=== PATIENT | male | born 1980 | race Two or more races ===

== ENCOUNTER 2019-03-21 23:27 | Emergency (ER) | payer BC ==
--- NOTE | 2019-03-21 23:50 | ED ---
Psychiatric Complaint - HPI Summary HPI Summary: A 38 y/o male presents to [facility] with a chief complaint of being brought in by police on a 9.41. The patient reportedly got into an argument with his and cut his wrists. He denies any current SI. He reports drinking red wine [employer] and reports some N/V dizziness and headache. He denies any SOB or CP. - History Of Current Complaint Chief Complaint: [facility]entalHealth Time Seen by Provider: 03/21/19 23:37 Hx Obtained From: Patient, Other: - police Onset/Duration: Sudden Onset, Lasting Hours, Still Present Timing: Constant Severity Initially: Mild Severity Currently: Mild Character: Depressed Aggravating Factor(s): Nothing Alleviating Factor(s): Nothing Associated Signs And Symptoms: Positive: Negative - Allergies/Home Medications Allergies/Adverse Reactions: Allergies Allergy/AdvReac Type Severity Reaction Status Date / Time No Known Allergies Allergy Verified 09/03/14 16:16 PMH/Surg Hx/FS Hx/Imm Hx Endocrine/Hematology History: Denies: Hx Diabetes Cardiovascular History: Denies: Hx Hypertension Infectious Disease History: No Infectious Disease History: Denies: Traveled Outside the [place] in Last 30 Days - Family History Known Family History: Negative: Hypertension, Diabetes - Social History Alcohol Use: Weekly Substance Use Type: Reports: None Smoking Status (MU): Former Smoker Type: Cigarettes Amount Used/How Often: 6 YEARS Have You Smoked in the Last Year: Yes Review of Systems Negative: Fever Negative: Chest Pain Negative: Shortness Of Breath Positive: Vomiting, Nausea Neurological: Other - positive: dizziness Positive: Headache Psychological: Other - positive: cut wrists [employer], no current SI All Other Systems Reviewed And Are Negative: Yes Physical Exam - Summary Physical Exam Summary: Constitutional: Well-developed, Well-nourished, Alert. (-) Distressed Skin: Warm, Dry, 3 extremely superficial linear abrasions on left wrist HENT: Normocephalic; Atraumatic Eyes: Conjunctiva normal Neck: Musculoskeletal ROM normal neck. (-) JVD, (-) Stridor, (-) Tracheal deviation Cardio: Rhythm regular, rate normal, Heart sounds normal; Intact distal pulses; The pedal pulses are 2+ and symmetric. Radial pulses are 2+ and symmetric. (-) Murmur Pulmonary/Chest wall: Effort normal. (-) Respiratory distress, (-) Wheezes, (-) Rales Abd: Soft, (-) tenderness, (-) Distension, (-) Guarding, (-) Rebound Musculoskeletal: (-) Edema Lymph: (-) Cervical adenopathy Neuro: Alert, Oriented x3 Psych: slightly depressed mood, denies SI or HI at this time. Triage Information Reviewed: Yes Vital Signs On Initial Exam: Initial Vitals Temp Pulse Resp BP Pulse Ox 97.5 F 89 18 118/97 98 03/21/19 23:28 03/21/19 23:28 03/21/19 23:28 03/21/19 23:28 03/21/19 23:28 Vital Signs Reviewed: Yes Diagnostics - Vital Signs Vital Signs Temp Pulse Resp BP Pulse Ox 03/21/19 23:28 97.5 F 89 18 118/97 98 - Laboratory Result Diagrams: 03/22/19 00:00 03/22/19 00:00 Lab Statement: Any lab studies that have been ordered have been reviewed, and results considered in the medical decision making process. Course/Dx - Course Course Of Treatment: A 38 y/o male presents to [facility] with a chief complaint of being brought in by police on a 9.41. The patient reportedly got into an argument with his and cut his wrists. In the ED he denies any SI or HI. The physical exam revealed 3 extremely superficial linear abrasions on left wrist, slightly depressed mood, denies SI or HI at this time. In the ED course the patient was given potassium chloride PO. Blood work, chemistries and toxicology obtained and the patient has been cleared for [facility]. Per mental health evaulator, Dr. Puente has cleared the patient for discharge. Dx: unspecified mood disorder. The patient is agreeable with this plan. - Differential Dx/Clinical Impression Provider Diagnosis: Unspecified mood [affective] disorder - Physician Notifications Discussed Care Of Patient With: Anselmo Puente Time Discussed With Above Provider: 02:02 Instructed by Provider To: Other - Per mental health graciela, Dr. Puente has cleared the patient for discharge. Dx: unspecified mood disorder. Discharge - Sign-Out/Discharge Documenting (check all that apply): Patient Departure - DC Patient Received Moderate/Deep Sedation with Procedure: No - Discharge Plan Condition: Stable Disposition: HOME Patient Education Materials: Mood Disorders (ED) Referrals: Sarah Renteria MD [Medical Doctor] - - Billing Disposition and Condition Condition: STABLE Disposition: Home - Attestation Statements Document Initiated by Abdulaziz: Yes Documenting Scribe: Bradley Ramos Provider For Whom Abdulaziz is Documenting (Include Credential): Lakshmi Rod MD Scribe Attestation: I, Bradley Ramos, scribed for Lakshmi Espana MD on 03/22/19 at 0432. Scribe Documentation Reviewed: Yes Provider Attestation: The documentation as recorded by the Bradley driver accurately reflects the service I personally performed and the decisions made by me, Lakshmi Espana MD Status of Scribe Document: Viewed
[2019-03-22 00:22] LABS: ALT 13 U/L (7-52); AST 23 U/L (13-39); Albumin 4.8 g/dL (3.2-5.2); Albumin/Globulin Ratio 1.8 (1-3); Alkaline Phosphatase 73 U/L (34-104); Anion Gap 9 mmol/L (2-11); Blood Urea Nitrogen 16 mg/dL (6-24); CO2 Carbon Dioxide 23 mmol/L (22-32); Calcium 9.2 mg/dL (8.6-10.3); Chloride 107 mmol/L (101-111); EGFR African American 114.6 (>60); EGFR Non-African American 94.7 (>60); Globulin 2.7 g/dL (2-4); Glucose 97 mg/dL (70-100); Potassium 3.4 mmol/L (3.5-5.0); Sodium 139 mmol/L (135-145); Total Protein 7.5 g/dL (6.4-8.9)
[2019-03-22 00:27] LABS: ABS Basophils 0.1 10^3/ul (0-0.2); ABS Eosinophils 0.5 10^3/ul (0-0.6); ABS Lymphocytes 3.2 10^3/ul (1.0-4.8); ABS Monocytes 0.6 10^3/ul (0-0.8); ABS Neutrophils 3.1 10^3/ul (1.5-7.7); Eosinophil % 6.8 %; Hematocrit 46 % (42-52); Hemoglobin 15.4 g/dL (14.0-18.0); Lymphocyte % 42.7 %; Mean Corpuscular HGB Conc 33 g/dL (31-36); Mean Corpuscular Hemoglobin 26 pg (27-31); Mean Corpuscular Volume 79 fL (80-94); Mean Platelet Volume 7.9 fL (7.4-10.4); Platelet Count 232 10^3/uL (150-450); Red Blood Count 5.91 10^6 /uL (4.18-5.48); Red Cell Distribution Width 15 % (10-15); White Blood Count 7.4 10^3/uL (3.5-10.8)
[2019-03-22 00:34] LABS: Acetaminophen < 15 mcg/mL; Alcohol 128 mg/dL (<10); Salicylate < 2.50 mg/dL (<30)
[2019-03-22 00:50] LABS: TSH (Thyroid Stimulating Horm) 2.72 mcIU/mL (0.34-5.60)
[2019-03-22] MEDS ORDERED: Potassium Chlor TAB* 20 MEQ TAB.ER PO ONE (01:38)
[2019-03-22 02:23] VITALS: BP 106/66
== END 2019-03-22 02:15 | disposition home or self-care (01) ==
LOC: ED 23:27
DX: F39 Unspecified mood [affective] disorder (principal); Z87.891 Personal history of nicotine dependence
CPT/HCPCS: 36415; 80053; 80320; 80329; 84443; 85025; 99285; G0480

== ENCOUNTER 2020-03-10 00:22 | Inpatient (IN) ==
[2020-03-10 00:50] LABS: ABS Basophils 0.1 10^3/ul (0-0.2); ABS Lymphocytes 3.2 10^3/ul (1.0-4.8); ABS Monocytes 0.7 10^3/ul (0-0.8); ABS Neutrophils 7.3 10^3/ul (1.5-7.7); Eosinophil % 8.4 %; Hematocrit 44 % (42-52); Hemoglobin 14.8 g/dL (14.0-18.0); Lymphocyte % 26.1 %; Mean Corpuscular HGB Conc 34 g/dL (31-36); Mean Corpuscular Hemoglobin 27 pg (27-31); Mean Corpuscular Volume 79 fL (80-94); Mean Platelet Volume 7.8 fL (7.4-10.4); Nucleated Red Blood Cells % 0.1; Platelet Count 257 10^3/uL (150-450); Red Blood Count 5.53 10^6 /uL (4.18-5.48); Red Cell Distribution Width 14 % (10-15); White Blood Count 12.4 10^3/uL (3.5-10.8)
[2020-03-10 01:07] LABS: ALT 14 U/L (7-52); AST 22 U/L (13-39); Albumin 4.5 g/dL (3.2-5.2); Albumin/Globulin Ratio 1.7 (1-3); Alcohol, S 74 mg/dL (<10); Alkaline Phosphatase 67 U/L (34-104); Anion Gap 6 mmol/L (2-11); BUN/Creatinine Ratio 12.5 (8-20); Blood Urea Nitrogen 13 mg/dL (6-24); CO2 Carbon Dioxide 25 mmol/L (22-32); Calcium 8.9 mg/dL (8.6-10.3); Chloride 105 mmol/L (101-111); EGFR African American 95.2 (>60); EGFR Non-African American 78.7 (>60); Globulin 2.6 g/dL (2-4); Glucose 137 mg/dL (70-100); Potassium 3.6 mmol/L (3.5-5.0); Salicylate < 2.50 mg/dL (<30); Sodium 136 mmol/L (135-145); Total Protein 7.1 g/dL (6.4-8.9)
[2020-03-10 01:18] LABS: Acetaminophen 53 mcg/mL
[2020-03-10 07:43] LABS: Urine Appearance Clear; Urine Benzodiazepine Screen None Detected (None Detect); Urine Bilirubin Negative (Negative); Urine Blood Negative (Negative); Urine Cannabinoids Screen None Detected (None Detect); Urine Color Yellow; Urine Glucose Negative (Negative); Urine Ketones Negative (Negative); Urine Nitrite Negative (Negative); Urine Opiates Screen Presumptive Positive (None Detect); Urine Protein Negative (Negative); Urine Specific Gravity 1.025 (1.010-1.030); Urine Urobilinogen Negative (Negative)
[2020-03-10 13:39] LABS: HIV 4th Generation Nonreactive (Nonreactive)
[2020-03-10 13:55] LABS: Hepatitis C Antibody Negative (Negative)
[2020-03-10] MEDS ORDERED: Al Hydrox/Mg Hydrox/Simet LIQ 30 ML UDC PO PRN (15:12)
[2020-03-10] MEDS ORDERED: Ondansetron ODT 4 mg TAB 4 MG TAB ONE (18:29)
[2020-03-11] MEDS: Vitamin THERAPEUTIC TAB PO SCH (12:32)
[2020-03-12] MEDS: Vitamin THERAPEUTIC TAB PO SCH (08:46)
[2020-03-13 09:00] VITALS: BP 115/76
== END 2020-03-13 11:05 | disposition home or self-care (01) | DRG 754 ==
LOC: ED 00:22 → BSU 13:46
PROVIDERS: ADMIT Psychiatry & Neurology Psychiatry; ATTEND Psychiatry & Neurology Psychiatry